=== PATIENT | female | born 2000 | race African-American/Black ===

== ENCOUNTER 2022-02-21 22:06 | Emergency (ER) | payer SELFPAY ==
[2022-02-21 23:41] LABS: Urine Blood Negative (Negative); Urine Glucose Negative (Negative); Urine Protein Negative (Negative); Urine Specific Gravity >=1.030 (1.005-1.030); Urine pH 5.5 (5.0-7.0)
[2022-02-21] MEDS ORDERED: DIPHENHYDRAMINE 50 MG/ML VIAL ONE (23:52)
[2022-02-21] MEDS ORDERED: KETOROLAC 30 MG/ML INJ ONE (23:52)
[2022-02-21] MEDS ORDERED: NA CHLORIDE 0.9% 1,000 ML ONE (23:52)
[2022-02-21] MEDS ORDERED: METOCLOPRAMIDE 10 MG/2mL INJ ONE ×2 (23:52→23:53)
[2022-02-21 23:58] LABS: Absolute Lymphocytes (CBC) 3.4 K/uL (0.7-4.9); Hematocrit 32.8 % (36.0-45.0); Lymphocytes % 37.5 % (15.3-44.8); MCV 76.4 fL (80-100); MPV 7.6 fL (7.6-11.3); RBC Red Blood Cell Count 4.29 M/uL (3.86-4.86)
[2022-02-22 00:14] LABS: Potassium 3.4 mmol/L (3.5-5.1)
--- NOTE | 2022-02-22 00:20 | ER ---
Nurse's Notes [facility] Name: Giuseppe Denny Age: 21 yrs Sex: Female : 2000 Arrival Date: 02/21/2022 Time: 22:09 Bed 14 Private MD: Diagnosis: Headache Presentation: 02/21 22:20 Chief complaint: Patient states: "I was lightheaded at work and I have a headache. This tw5 has been going on for two weeks.". Coronavirus screen: Vaccine status: Patient reports receiving the 2nd dose of the covid vaccine. Moderna. Ebola Screen: Patient negative for fever greater than or equal to 101.5 degrees Fahrenheit, and additional compatible Ebola Virus Disease symptoms Patient denies exposure to infectious person. Patient denies travel to an Ebola-affected area in the 21 days before illness onset. Initial Sepsis Screen: Does the patient meet any 2 criteria? No. Patient's initial sepsis screen is negative. Does the patient have a suspected source of infection? No. Patient's initial sepsis screen is negative. Risk Assessment: Do you want to hurt yourself or someone else? Patient reports no desire to harm self or others. Onset of symptoms is unknown. 22:20 Method Of Arrival: Ambulatory tw5 22:20 Acuity: SKYE 3 tw5 Triage Assessment: 22:22 Headache History: The patient has had previous headaches and this one is similar to tw5 previous episodes. General: Appears in no apparent distress. obese, Behavior is calm, cooperative, appropriate for age. Pain: Pain currently is 7 out of 10 on a pain scale. Pain began gradually, Also complains of nausea. Neuro: Level of Consciousness is awake, alert, obeys commands, Oriented to person, place, time, situation. 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 - Social history:: Smoking status: Patient denies any tobacco usage or history of. Screenin:23 Abuse screen: Denies threats or abuse. Denies injuries from another. Nutritional tw5 screening: No deficits noted. Tuberculosis screening: No symptoms or risk factors identified. Fall Risk None identified. Assessment: 02/22 00:15 General: Appears in no apparent distress. Behavior is cooperative. Pain: Complains of sm5 pain in head. Neuro: Level of Consciousness is awake, alert, obeys commands, Oriented to person, place, time, situation. Cardiovascular: Capillary refill < 3 seconds Patient's skin is warm and dry. Respiratory: Airway is patent Trachea midline Respiratory effort is even, unlabored. 00:49 Reassessment: Patient states feeling better. 5 Vital Signs: 02/21 22:20 BP 132 / 76; Pulse 81; Resp 18; Temp 98.7; Pulse Ox 100% on R/A; Weight 122.47 kg; tw5 Height 5 ft. 7 in. (170.18 cm); Pain 6/10; 02/22 00:49 BP 121 / 71; Pulse 73; Resp 16; Pulse Ox 99% on R/A; sm5 02/21 22:20 Body Mass Index 42.29 (122.47 kg, 170.18 cm) tw5 ED Course: 02/21 22:09 Patient arrived in ED. bp1 22:16 Tanner Baum NP is PHCP. pm1 22:16 Monty Torres MD is Attending Physician. pm1 22:22 Triage completed. tw5 22:22 Arm band placed on right wrist. tw5 22:23 No provider procedures requiring assistance completed. tw5 22:47 Estephania Hernandez, VON is Primary Nurse. sm5 23:00 CT Head Brain wo Cont In Process Unspecified. EDMS 02/22 00:16 Patient has correct armband on for positive identification. Bed in low position. Call sm5 light in reach. Side rails up X2. 00:49 IV discontinued, intact, bleeding controlled, No redness/swelling at site. Pressure 5 dressing applied. Administered Medications: 02/21 23:41 Not Given (Physician Discretion): Reglan (metoCLOPramide) 10 mg PO once pm1 23:53 Drug: NS 0.9% 1000 ml Route: IV; Rate: 1000 ml; Site: right antecubital; 5 02/22 00:50 Follow up: IV Status: Completed infusion; IV Intake: 1000ml [facility] 02/21 23:53 Drug: Reglan (metoCLOPramide) 10 mg Route: IVP; Site: right antecubital; sm5 02/22 00:50 Follow up: Response: No adverse reaction 5 02/21 23:54 Drug: Benadryl (diphenhydrAMINE) 25 mg Route: IVP; Site: right antecubital; sm5 02/22 00:50 Follow up: Response: No adverse reaction sm5 02/21 23:54 Drug: Ketorolac 30 mg Route: IVP; Site: right antecubital; sm5 02/22 00:50 Follow up: Response: No adverse reaction 5 Medication: 00:49 VIS not applicable for this client. sm5 Intake: 00:50 IV: 1000ml; Total: 1000ml. 5 Outcome: 00:20 Discharge ordered by . pm1 00:49 Discharged to home ambulatory, with friend. sm5 00:49 Condition: stable 00:49 Discharge instructions given to patient, friend, Instructed on discharge instructions, follow up and referral plans. medication usage, Demonstrated understanding of instructions, follow-up care, medications, Prescriptions given X 1. 00:50 Patient left the ED. 5 Signatures: Dispatcher [employer] EDMS Tanner Baum, KIANA MACHINE LEATHER TRIMMER pm1 Frida Bauer Tiffany tw5 Estephania Hernandez, RN RN 5 Corrections: (The following items were deleted from the chart) 02/21 22:31 22:20 Acuity: SKYE 4 5 tw5
--- NOTE | 2022-02-22 00:20 | EDPHYS ---
Physician Documentation [facility] Name: Giuseppe Denny Age: 21 yrs Sex: Female : 2000 Arrival Date: 02/21/2022 Time: 22:09 Bed 14 Private MD: ED Physician Monty Torres HPI: 02/21 22:46 This 21 yrs old Black Female presents to ER via Ambulatory with complaints of Headache, pm1 Dizziness. 22:46 The patient complains of pain to the right side of forehead. The patient describes the pm1 headache as aching. 22:47 Onset: The symptoms/episode began/occurred on and off for the past 2 weeks. Associated pm1 signs and symptoms: Pertinent positives: dizziness, Pertinent negatives: fever, nausea, neck stiffness, vision changes, vomiting. Severity of symptoms: in the emergency department the pain is unchanged. Headache History: Denies prior headaches. The symptoms are alleviated by nothing. the symptoms are aggravated by nothing. The patient has not experienced similar symptoms in the past. The patient has not recently seen a physician. 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 - Social history:: Smoking status: Patient denies any tobacco usage or history of. ROS: 22:47 Constitutional: Negative for fever, chills, and weight loss, Cardiovascular: Negative pm1 for chest pain, palpitations, and edema, Respiratory: Negative for shortness of breath, cough, wheezing, and pleuritic chest pain. 22:47 Back: Negative for injury and pain, MS/Extremity: Negative for injury and deformity, Skin: Negative for injury, rash, and discoloration. 22:47 Abdomen/GI: Negative for abdominal pain, nausea, vomiting, diarrhea, and constipation. 22:47 Neuro: Positive for dizziness, Negative for numbness, tingling, weakness. 22:47 All other systems are negative. Exam: 22:47 Constitutional: This is a well developed, well nourished patient who is awake, alert, pm1 and in no acute distress. 22:47 Head/Face: Normocephalic, atraumatic. pm1 22:47 Skin: Warm, dry with normal turgor. Normal color with no rashes, no lesions, and no evidence of cellulitis. MS/ Extremity: Pulses equal, no cyanosis. Neurovascular intact. Full, normal range of motion. 22:47 Eyes: Exam is negative for acute changes, Periorbital structures: appear normal, Pupils: no acute changes, Extraocular movements: no acute changes, Conjunctiva: no acute changes, no injection. 22:47 ENT: Exam is negative for acute changes, Mouth: no acute changes, Lips: normal, moist, Oral mucosa: normal, pink and intact, moist. 22:47 Cardiovascular: Exam negative for acute changes, Rate: normal, Rhythm: regular, Pulses: no pulse deficits are appreciated. 22:47 Respiratory: Exam negative for acute changes, respiratory distress, shortness of breath, Breath sounds: are clear throughout. 22:47 Neuro: Exam negative for acute changes. Vital Signs: 22:20 BP 132 / 76; Pulse 81; Resp 18; Temp 98.7; Pulse Ox 100% on R/A; Weight 122.47 kg; tw5 Height 5 ft. 7 in. (170.18 cm); Pain 6/10; 02/22 00:49 BP 121 / 71; Pulse 73; Resp 16; Pulse Ox 99% on R/A; sm5 02/21 22:20 Body Mass Index 42.29 (122.47 kg, 170.18 cm) tw5 MDM: 02/21 22:30 Patient medically screened. pm1 23:41 ED course: Patient's parent requesting blood work. Patient with normal neuro pm1 examination and normal CT head. 23:46 Data reviewed: vital signs. Data interpreted: Pulse oximetry: on room air is 100 %. pm1 Interpretation: normal. 02/22 00:18 ED course: Patient's headache resolved with medications given. Discussed labs with pm1 patient. Will discharge patient home post infusion of IV fluids. 00:18 Counseling: I had a detailed discussion with the patient and/or guardian regarding: the pm1 historical points, exam findings, and any diagnostic results supporting the discharge/admit diagnosis, lab results, radiology results, the need for outpatient follow up, a family practitioner, to return to the emergency department if symptoms worsen or persist or if there are any questions or concerns that arise at home. 00:23 ED course: PMPaware reviewed. Impression likely tension headache. Will discharge the pm1 patient home with maria t. 02/21 23:41 Order name: CBC with Diff; Complete Time: 00:04 pm1 02/21 22:30 Order name: CT Head Brain wo Cont pm1 02/21 23:41 Order name: BMP; Complete Time: 00:15 pm1 02/21 23:42 Order name: Urine Dipstick-Ancillary; Complete Time: 23:48 EDMS 02/21 22:30 Order name: Urine Dipstick-Ancillary (obtain specimen); Complete Time: 23:40 pm1 02/21 22:30 Order name: Urine Test (obtain specimen); Complete Time: 23:40 pm1 Administered Medications: 02/21 23:41 Not Given (Physician Discretion): Reglan (metoCLOPramide) 10 mg PO once pm1 23:53 Drug: NS 0.9% 1000 ml Route: IV; Rate: 1000 ml; Site: right antecubital; [facility] 02/22 00:50 Follow up: IV Status: Completed infusion; IV Intake: 1000ml [facility] 02/21 23:53 Drug: Reglan (metoCLOPramide) 10 mg Route: IVP; Site: right antecubital; [facility] 02/22 00:50 Follow up: Response: No adverse reaction [facility] 02/21 23:54 Drug: Benadryl (diphenhydrAMINE) 25 mg Route: IVP; Site: right antecubital; [facility] 02/22 00:50 Follow up: Response: No adverse reaction [facility] 02/21 23:54 Drug: Ketorolac 30 mg Route: IVP; Site: right antecubital; [facility] 02/22 00:50 Follow up: Response: No adverse reaction [facility] Disposition: 01:05 Co-signature as Attending Physician, Monty Torres MD. rn Disposition Summary: 02/22/22 00:20 Discharge Ordered Location: Home pm1 Problem: new pm1 Symptoms: have improved pm1 Condition: Stable pm1 Diagnosis - Headache pm1 Followup: pm1 - With: Emergency Department - When: As needed - Reason: Worsening of condition Followup: pm1 - With: Private Physician - When: 2 - 3 days - Reason: Recheck today's complaints, Continuance of care, Re-evaluation by your physician Discharge Instructions: - Discharge Summary Sheet pm1 - General Headache Without Cause pm1 Forms: - Medication Reconciliation Form pm1 - Thank You Letter pm1 - Antibiotic Education pm1 - Prescription Opioid Use pm1 Prescriptions: - Fiorinal - take 1 tablet by ORAL route every 6 hours As needed; 20 tablet; Refills: 0, pm1 Product Selection Permitted Signatures: Dispatcher [employer] EDMS Monty Torres MD MD rn Marinas, Patrick, NP ANIMAL BEHAVIORIST pm1 Opal Mackey tw5 Estephania Hernandez RN RN sm5
[2022-02-22 05:17] VITALS: TEMP 98.7
[2022-02-22 05:19] VITALS: BP 121/71; O2SAT 99
--- NOTE | 2022-02-22 12:24 | RAD REPORT ---
EXAM DESCRIPTION: CT - Head Brain Wo Cont - 02/22/2022 4:09 am CLINICAL HISTORY: Headache. TECHNIQUE: Noncontrast CT through the head was performed. Axial, coronal, and sagittal reconstructio ns were created and sent to PACS. This exam was performed according to our departmental dose-optimiza tion program which includes use of Automated Exposure Control, adjustment of the mA and/or kV accordi ng to patient size and/or use of iterative reconstruction technique. COMPARISON: None. FINDINGS: The brain parenchyma appears unremarkable. There is no intra-axial or extra-axial bleed se en. There is no mass or mass effect. The ventricles are unremarkable. The orbital contents appear unr emarkable. The visualized paranasal sinuses and mastoid air cells are patent. No acute fracture is identified. IMPRESSION: No acute intracranial abnormality identified. Electronically signed by: Jelly Juan MD 02/21/2022 11:17 PM CDT Due to temporary technical issues with the PACS/Fluency reporting system, reports are being signed by the in house radiologists without review as a courtesy to insure prompt reporting. The interpreting radiologist is fully responsible for the content of the report.
== END 2022-02-22 00:50 | disposition home or self-care (01) ==
LOC: ER 22:06
DX: R51.9 Headache, unspecified (principal); R42 Dizziness and giddiness
CPT/HCPCS: 36415; 70450; 80048; 81003; 85025; 96361; 96374; 96375; 99283; J1200; J2765; J7030